=== PATIENT | male | born 1940 | race Hispanic/Latino ===

== ENCOUNTER 2018-01-11 08:32 | Day surgery (SDC) | payer OTHER ==
[2018-01-08 14:05] LABS: BASOPHILS % (AUTO) 0.8 % (0.0-5.0); EOSINOPHILS % (AUTO) 1.1 % (0.0-8.0); HEMATOCRIT 33.3 % (42-54); MEAN CORPUSCULAR HEMOGLOBIN 29.5 pg (27.0-33.0); MEAN CORPUSCULAR HGB CONC 33.7 g/dL (32.0-36.0); MEAN CORPUSCULAR VOLUME 87.6 fL (79-99); MONOCYTES % (AUTO) 5.3 % (3.0-13.0); NEUTROPHILS % (AUTO) 68.8 % (40.0-77.0); PLATELET COUNT (AUTO) 142 K/uL (130-400); RED CELL DISTRIBUTION WIDTH 15.5 % (11.0-15.5); WHITE BLOOD COUNT (AUTO) 6.9 K/uL (4.8-10.8)
[2018-01-08 14:12] LABS: CREATININE 1.8 mg/dL (0.5-1.5); POTASSIUM 3.1 mmol/L (3.5-5.1)
[2018-01-08 14:26] LABS: INR 1.02 (0.85-1.15); PARTIAL THROMBOPLASTIN TIME 30.9 SEC (26.3-35.5); PROTHROMBIN TIME 10.7 SEC (9.6-11.6)
[2018-01-11] VITALS (19 sets, daily range): BP systolic 151–199; BP diastolic 56–109
[~2018-01-11] VITALS: Ht 172.7 cm; Wt 38.6 kg
[~2018-01-11 08:32] MED LIST: AMLO5TAB7 PO; ASPI-1197 PO; GLIP1TAB6 PO; METO100T14 PO; SIMV40TA5 PO; SODIUM CHLORIDE 0.9% 1000ML 1,000 ML IV SCH; VALS160T29 PO
[2018-01-11] MEDS ORDERED: APIX2.5T PO (10:43)
[2018-01-11] MEDS ORDERED: [UNRECOGNIZED DRUG - OTHER] TP (10:43)
[2018-01-11] MEDS ORDERED: CETI-101 PO (10:43)
[2018-01-11] MEDS ORDERED: PRAV40TA3 PO (10:43)
[2018-01-11] MEDS ORDERED: TRAZ-187 PO (10:43)
[2018-01-11] MEDS ORDERED: MIDAZOLAM HCL 1 MG/ML 2ML VIAL ONE (11:11)
[2018-01-11] MEDS ORDERED: FENTANYL CITRATE PF 50 MCG/1 ML 2ML VIAL ONE (11:12)
[2018-01-11] MEDS ORDERED: LABETALOL HCL 5 MG/ML 20ML VIAL IV SCH (16:30)
== END 2018-01-11 13:40 | disposition home or self-care (01) ==
LOC: DAH 08:32
PROVIDERS: ATTEND Internal Medicine Cardiovascular Disease
DX: I35.0 Nonrheumatic aortic (valve) stenosis (principal); I35.1 Nonrheumatic aortic (valve) insufficiency; I25.10 Atherosclerotic heart disease of native coronary artery without angina pectoris; Z95.1 Presence of aortocoronary bypass graft; E78.5 Hyperlipidemia, unspecified; E11.9 Type 2 diabetes mellitus without complications; Z88.0 Allergy status to penicillin; I11.0 Hypertensive heart disease with heart failure; I50.32 Chronic diastolic (congestive) heart failure; R00.1 Bradycardia, unspecified; M54.16 Radiculopathy, lumbar region; Z95.0 Presence of cardiac pacemaker; I48.0 Paroxysmal atrial fibrillation; Z79.899 Other long term (current) drug therapy
CPT/HCPCS: 36415; 80048; 82948; 85025; 85610; 85730; 93313; A4606; J2250; J3010; J3490; 93325

== ENCOUNTER → 2018-06-16 | Outpatient (CLI) | payer OTHER ==
[~2018-06-16] MED LIST changes: -AMLO5TAB7 PO; +APIX2.5T PO; -ASPI-1197 PO; +CARV25TA PO; +CARV3.12 PO; +CETI-101 PO; +CLON1PAT13 TD; +CYAN500L PO; +DOXY100C2 PO; +DULA1.5P SQ; +FURO40TA5 PO; +INSU3INS3 SQ; +INSULIN SQ; +IPRA3AMP24 IH; +LACT10SO PO; +LUBI24CA2 PO; +MELA3TAB66 PO; +OLME40TA18 PO; +PRAV40TA3 PO; +PREG50 PO; -SIMV40TA5 PO; -SODIUM CHLORIDE 0.9% 1000ML 1,000 ML IV SCH; +TRAZ-187 PO; -VALS160T29 PO; +[UNRECOGNIZED DRUG - OTHER] TP
== END | disposition home or self-care (01) ==
LOC: SHCH 13:01
PROVIDERS: ATTEND Internal Medicine Cardiovascular Disease
DX: I73.9 Peripheral vascular disease, unspecified (principal); I25.10 Atherosclerotic heart disease of native coronary artery without angina pectoris; I10 Essential (primary) hypertension
CPT/HCPCS: 93925

== ENCOUNTER → 2018-07-02 | Outpatient (CLI) | payer OTHER ==
[~2018-07-02] MED LIST changes: -CARV25TA PO; -CARV3.12 PO; -CLON1PAT13 TD; -CYAN500L PO; -DOXY100C2 PO; -DULA1.5P SQ; -FURO40TA5 PO; -INSU3INS3 SQ; -INSULIN SQ; -IPRA3AMP24 IH; -LACT10SO PO; -LUBI24CA2 PO; -MELA3TAB66 PO; -OLME40TA18 PO; -PREG50 PO
== END | disposition home or self-care (01) ==
LOC: SHCH 13:35
PROVIDERS: ATTEND Internal Medicine Cardiovascular Disease
DX: I08.1 Rheumatic disorders of both mitral and tricuspid valves (principal); I11.9 Hypertensive heart disease without heart failure; I25.10 Atherosclerotic heart disease of native coronary artery without angina pectoris; Z95.2 Presence of prosthetic heart valve; Z95.0 Presence of cardiac pacemaker
CPT/HCPCS: 93306

== ENCOUNTER 2018-07-26 14:00 | Inpatient (IN) | payer OTHER ==
[~2018-07-26] VITALS: Ht 172.7 cm; Wt 80.7 kg
[2018-07-26] MEDS ORDERED: FUROSEMIDE 10 MG/ML 4ML VIAL IVP SCH (15:00)
[2018-07-26] MEDS ORDERED: ONDANSETRON HCL 4 MG/2 ML VIAL IVP PRN (15:15)
[2018-07-26] MEDS ORDERED: MAG HYDROX/AL HYDROX/SIMETH ES 30 ML SUSP UDCUP PO PRN (15:15)
[2018-07-26] MEDS ORDERED: DIPHENHYDRAMINE HCL 25 MG CAPSULE PO PRN (15:15)
[2018-07-26] MEDS ORDERED: ZOLPIDEM TARTRATE 5 MG TAB PO PRN (15:15)
--- NOTE | 2018-07-26 15:20 | NUR ---
due to void Addendum: 07/26/18 at 2000 by DOUGLAS GENAO RN RN Amended: Links added.
--- NOTE | 2018-07-26 15:42 | NUR ---
Direct admit from the ER for CHF exacerbation, accompanied by his dtr. Addendum: 07/26/18 at 1555 by DOUGLAS GENAO RN RN Amended: Links added.
[2018-07-26 16:00] VITALS: BP 133/66
[2018-07-26] MEDS ORDERED: FURO40TA5 PO (16:50)
[2018-07-26] MEDS ORDERED: CYAN500L PO (16:50)
[2018-07-26] MEDS ORDERED: INSU3INS3 SQ (16:50)
[2018-07-26] MEDS ORDERED: DULA1.5P SQ (16:50)
[2018-07-26] MEDS ORDERED: GLIP1TAB6 PO (16:50)
[2018-07-26] MEDS ORDERED: CLON1PAT13 TD (16:50)
[2018-07-26] MEDS ORDERED: LUBI24CA2 PO (16:50)
[2018-07-26] MEDS ORDERED: LACT10SO PO (16:50)
[2018-07-26] MEDS ORDERED: PREG50 PO (16:50)
[2018-07-26 16:51] LABS: HEMATOCRIT 31.6 % (42-54); MEAN CORPUSCULAR HEMOGLOBIN 27.7 pg (27.0-33.0); MEAN CORPUSCULAR HGB CONC 33.1 g/dL (32.0-36.0); MEAN CORPUSCULAR VOLUME 83.7 fL (79-99); PLATELET COUNT (AUTO) 161 K/uL (130-400); RED BLOOD CELL COUNT(AUTO) 3.77 MIL/uL (4.50-6.20); RED CELL DISTRIBUTION WIDTH 18.5 % (11.0-15.5); WHITE BLOOD COUNT (AUTO) 6.2 K/uL (4.8-10.8)
[2018-07-26 17:14] LABS: ALBUMIN 3.2 g/dL (3.5-5.0); BILIRUBIN,DIRECT 0.1 mg/dL (0.0-0.3); BILIRUBIN,TOTAL 0.5 mg/dL (0.2-1.0); CREATININE 1.9 mg/dL (0.5-1.5); POTASSIUM 3.4 mmol/L (3.5-5.1); THYROID STIMULATING HORMONE 1.73 uIU/mL (0.36-3.74); TOTAL PROTEIN, SERUM 6.6 g/dL (6.0-8.3)
[2018-07-26 20:00] VITALS: BP 131/65
[2018-07-26] MEDS ORDERED: LIDOCAINE HCL-MPF 1% 2ML VIAL IVP PRN (20:15)
[2018-07-26] MEDS ORDERED: POTASSIUM CHLORIDE 20MEQ/100ML 100 ML IV PRN (20:15)
[2018-07-26] MEDS ORDERED: LACTULOSE 20 GM/30 ML UDCUP PO PRN (20:15)
[2018-07-26] MEDS ORDERED: [UNRECOGNIZED DRUG - OTHER] SQ SCH (20:15)
[2018-07-26] MEDS ORDERED: POTASSIUM CHLORIDE 10% ELIXIR 20 MEQ/15 ML UDCUP PO PRN (20:15)
[2018-07-26] MEDS ORDERED: INSULIN GLARGINE HUM REC ANLOG 12 UNIT SQ SCH (20:15)
--- NOTE | 2018-07-26 20:15 | NUR ---
Paged Dr José thru answering service.
[2018-07-26] MEDS: APIXABAN 2.5 MG TABLET PO SCH (21:00)
[2018-07-26] MEDS: PREGABALIN 25 MG CAP PO SCH (21:00)
[2018-07-26] MEDS: METOPROLOL TARTRATE 25 MG TAB PO SCH (21:28)
[2018-07-26] MEDS: POTASSIUM CHLORIDE 20 MEQ ERTAB PO PRN (21:28)
[2018-07-26] MEDS: FAMOTIDINE 20MG TAB 20 MG TAB PO SCH (21:28)
[2018-07-27] VITALS: BP 130/71
[2018-07-27 04:00] VITALS: BP 123/70
[2018-07-27] MEDS: FUROSEMIDE 10 MG/ML 2ML VIAL IV SCH ×2 (04:31→16:46)
[2018-07-27 05:10] LABS: HEMATOCRIT 28.5 % (42-54); MEAN CORPUSCULAR HEMOGLOBIN 27.9 pg (27.0-33.0); MEAN CORPUSCULAR HGB CONC 33.2 g/dL (32.0-36.0); MEAN CORPUSCULAR VOLUME 84.2 fL (79-99); NUCLEATED RED BLOOD CELLS 0.1 % (0.0-0.19); PLATELET COUNT (AUTO) 122 K/uL (130-400); RED BLOOD CELL COUNT(AUTO) 3.39 MIL/uL (4.50-6.20); RED CELL DISTRIBUTION WIDTH 18.3 % (11.0-15.5); WHITE BLOOD COUNT (AUTO) 5.4 K/uL (4.8-10.8)
[2018-07-27 05:30] LABS: ALBUMIN 2.8 g/dL (3.5-5.0); BILIRUBIN,DIRECT 0.1 mg/dL (0.0-0.3); BILIRUBIN,TOTAL 0.5 mg/dL (0.2-1.0); CREATININE 1.9 mg/dL (0.5-1.5); POTASSIUM 3.4 mmol/L (3.5-5.1); TOTAL PROTEIN, SERUM 5.8 g/dL (6.0-8.3)
[2018-07-27] MEDS: POTASSIUM CHLORIDE 20 MEQ ERTAB PO PRN ×2 (06:18→16:49)
[2018-07-27] MEDS: PHARMACY COMMUNICATION MISC SCH ×3 (07:30→21:57)
[2018-07-27 08:00] VITALS: BP 119/65
--- NOTE | 2018-07-27 08:00 | NUR ---
aortic heart mummur Addendum: 07/27/18 at 1326 by DOUGLAS GENAO RN RN Amended: Links added.
[2018-07-27] MEDS: METFORMIN HCL 500 MG TABLET PO SCH ×2 (09:00→16:17)
[2018-07-27] MEDS ORDERED: CLONIDINE 0.3 MG/ 24 HR PATCH TD SCH (09:00)
[2018-07-27] MEDS: APIXABAN 2.5 MG TABLET PO SCH (09:00)
[2018-07-27] MEDS: PREGABALIN 25 MG CAP PO SCH ×2 (09:27→20:44)
[2018-07-27] MEDS: CYANOCOBALAMIN (VITAMIN B-12) 1,000 MCG TABLET PO SCH (09:28)
[2018-07-27] MEDS: GLIPIZIDE 5 MG TABLET PO SCH ×2 (09:28→16:46)
[2018-07-27] MEDS: FAMOTIDINE 20MG TAB 20 MG TAB PO SCH ×2 (09:28→21:57)
[2018-07-27] MEDS: LUBIPROSTONE 24 MCG CAP PO SCH (09:28)
[2018-07-27] MEDS: METOPROLOL TARTRATE 25 MG TAB PO SCH ×2 (09:29→21:57)
--- NOTE | 2018-07-27 11:39 | NUR ---
Pt. taken via w/c for CT of the chest, left in stable condition.
[2018-07-27 12:00] VITALS: BP 104/55
--- NOTE | 2018-07-27 12:02 | NUR ---
Pt. back in room s/p CT of the chest, deneis any c/o. Family in room w/pt.
--- NOTE | 2018-07-27 15:56 | NUR ---
Pt. signed consent for Heart Catheterization with Dr. Neri tomorrow. Pt. requests that if he is unable to make medical decisions for himself that he wishes for his daughter Sarah Bean or son Andriy Bean to make medical decisions. Had put in request for Advanced directives, left message for FAROOQ Stephens to call me, have not heard back from her.
[2018-07-27 16:00] VITALS: BP 137/66
[2018-07-27 20:00] VITALS: BP 126/62
[2018-07-27] MEDS ORDERED: INSULIN GLARGINE 100 UNITS/ML 10 ML VIAL SQ PRN (20:30)
--- NOTE | 2018-07-27 22:42 | NUR ---
SHOWER/PREP Pt showered and clipped from umbilicus to both knees per LOSS PREVENTION REPRESENTATIVE.
[2018-07-28] VITALS (13 sets, daily range): BP systolic 102–172; BP diastolic 44–92
[2018-07-28] MEDS: PHARMACY COMMUNICATION MISC SCH (03:56)
[2018-07-28] MEDS: FUROSEMIDE 10 MG/ML 2ML VIAL IV SCH (04:27)
--- NOTE | 2018-07-28 04:45 | NUR ---
NIGHT Pt slept fairly well.Voiced no complaints of pain or discomfort.
[2018-07-28 05:46] LABS: HEMATOCRIT 27.9 % (42-54); MEAN CORPUSCULAR HEMOGLOBIN 27.4 pg (27.0-33.0); MEAN CORPUSCULAR HGB CONC 33.4 g/dL (32.0-36.0); MEAN CORPUSCULAR VOLUME 82.2 fL (79-99); PLATELET COUNT (AUTO) 159 K/uL (130-400); RED CELL DISTRIBUTION WIDTH 17.9 % (11.0-15.5); WHITE BLOOD COUNT (AUTO) 5.7 K/uL (4.8-10.8)
[2018-07-28 06:09] LABS: INR 1.02 (0.85-1.15); PARTIAL THROMBOPLASTIN TIME 30.5 SEC (26.3-35.5); PROTHROMBIN TIME 10.7 SEC (9.6-11.6)
[2018-07-28 06:16] LABS: ALBUMIN 2.9 g/dL (3.5-5.0); BILIRUBIN,TOTAL 0.3 mg/dL (0.2-1.0); CREATININE 1.9 mg/dL (0.5-1.5); POTASSIUM 3.3 mmol/L (3.5-5.1); TOTAL PROTEIN, SERUM 5.8 g/dL (6.0-8.3)
--- NOTE | 2018-07-28 06:55 | NUR ---
K+ k+ 3.3 covered with Iv kcl protocol.
[2018-07-28] MEDS: GLIPIZIDE 5 MG TABLET PO SCH ×2 (08:53→18:49)
[2018-07-28] MEDS: LUBIPROSTONE 24 MCG CAP PO SCH (08:53)
[2018-07-28] MEDS: PREGABALIN 25 MG CAP PO SCH ×2 (08:58→20:13)
[2018-07-28] MEDS: CYANOCOBALAMIN (VITAMIN B-12) 1,000 MCG TABLET PO SCH (08:59)
[2018-07-28] MEDS: FAMOTIDINE 20MG TAB 20 MG TAB PO SCH ×2 (09:33→20:12)
--- NOTE | 2018-07-28 11:04 | NUR ---
DIRECTIVES Sw met with pt, and daughter and educated on directives, MPOA and DNR. pt does not wish to complete at this time
--- NOTE | 2018-07-28 12:10 | NUR ---
PATIENT TRANSFERRED TO RN ANTE PARTUM, R & L HEART CATH. NO SOB, NO DISTRESS, NO PAIN. IV PATENTS X2.
[2018-07-28] MEDS ORDERED: IOHEXOL-350 50ML VIAL IV ONE (12:50)
[2018-07-28] MEDS ORDERED: HEPARIN SODIUM 1000UNIT/ML 10ML VIAL ONE (12:50)
[2018-07-28] MEDS ORDERED: LIDOCAINE HCL 2% 20ML ONE (12:50)
[2018-07-28] MEDS ORDERED: NITROGLYCERIN 5 MG/ML 10 ML VIAL IV ONE (12:50)
[2018-07-28] MEDS ORDERED: IOHEXOL 350 MG/ML 100ML INFUS..BTL IV ONE (12:50)
[2018-07-28] MEDS ORDERED: SODIUM BICARB 50MEQ 50ML VIAL ONE (12:51)
[2018-07-28] MEDS ORDERED: MIDAZOLAM HCL 1 MG/ML 2ML VIAL ONE (13:22)
[2018-07-28] MEDS ORDERED: MEPERIDINE-PF 50 MG/ML SYG ONE (13:22)
[2018-07-28] MEDS ORDERED: DOBUTAMINE IV ONE (13:57)
[2018-07-28] MEDS ORDERED: [UNRECOGNIZED DRUG - OTHER] IV ONE (13:57)
[2018-07-28] MEDS ORDERED: FUROSEMIDE 10 MG/ML 4ML VIAL IV SCH (14:45)
--- NOTE | 2018-07-28 15:49 | NUR ---
JUANA PLAN PATIENT DOWN FOR PROCEDURE. HE HAS BEEN TRANSFERRED TO ICU FOR SEVERE STENOSIS. CM WILL FOLLOW ONCE PATIENT IS STABLE AND PLAN OF CARE IS DETERMINED. Addendum: 07/28/18 at 1550 by STEPHY LIMA RN CM Amended: Links added.
--- NOTE | 2018-07-28 15:54 | NUR ---
PT IN FROM [facility], APPEARS COMFORTABLE. RIGHT GROIN SOFT. BILATERAL PEDAL PULSES PALPABLE AND WEAK. NO IV FLUIDS AT THIS TIME. INSTRUCTED PT ON BEDREST UNTIL 8PM. FAMILY AT BEDSIDE. VERBALIZED UNDERSTANDING. WILL CONTINUE TO MONITOR.
[2018-07-28] MEDS: METOPROLOL TARTRATE 25 MG TAB PO SCH ×2 (16:40→20:13)
--- NOTE | 2018-07-28 19:10 | NUR ---
Received report ,pt had a cardiac catheterization today and for transfer tomorrow to [facility] tomorrow for TAVR and pt is pending to be seen by Dr. Combs tomorrow.House was made aware per dayshift nurse
[2018-07-28] MEDS ORDERED: IPRA3AMP24 IH (22:09)
--- NOTE | 2018-07-28 22:15 | NUR ---
Pt.c/o chest tightness and non productive coughing and pt is on neb treatment at home,Dr. José was called and notified ,received order to continue neb q6 hrs prn wheezing.Family to bedside.
[2018-07-28] MEDS: IPRATROPIUM/ALBUTEROL SULFATE 3 ML SOLUTION IH PRN (22:27)
[2018-07-29] VITALS (11 sets, daily range): BP systolic 108–161; BP diastolic 51–106
--- NOTE | 2018-07-29 00:02 | NUR ---
Pt. wanted to get out of bed,informed pt. that he is on bedrest and he is short of breath on exertion pt. continued to insist and to bedside .Pt. decided to sit up at the bedside at this time.
--- NOTE | 2018-07-29 02:40 | NUR ---
Security was notified and now in pt. room because pt is agressive and became confused wanting to leave.Engineer Process was also notified regarding pt. being confused and wanting to leave.Pt. refused to be monitored,he took off all the electrodes and pulse ox and BP cuff. to bedside and said she cant take care of him.Pt. insisted of going home by himself.Explained to pt that he is not safe to be by himself at this time because of his present condition but to no avail.
--- NOTE | 2018-07-29 03:16 | NUR ---
was called and notiifed ,updated with pt. condition,lung sounds were crackly and pt refusing to be monitored and became aggressive and uncooperative.Pt. is confused and wanting to leave.Security and staffs walking with pt because he threatened to leave .Received order to do labs now and give haldol 4 mg IM now X1.
--- NOTE | 2018-07-29 03:20 | NUR ---
Dr. José is being paged and waiting to call back at this time.
[2018-07-29] MEDS ORDERED: HALOPERIDOL LACTATE 5 MG/ML VIAL IM SCH (04:00)
[2018-07-29] MEDS: HALOPERIDOL LACTATE 5 MG/ML VIAL ONE ×2 (04:04→04:13)
[2018-07-29] MEDS: IPRATROPIUM/ALBUTEROL SULFATE 3 ML SOLUTION IH PRN (06:50)
--- NOTE | 2018-07-29 07:37 | NUR ---
Pt. remained calm and resting well at this time,daughter to bedside.Report given to incoming NOD using SBAR ,all questions answered.
[2018-07-29 08:18] LABS: HEMATOCRIT 29.8 % (42-54); MEAN CORPUSCULAR HEMOGLOBIN 28.2 pg (27.0-33.0); MEAN CORPUSCULAR HGB CONC 33.4 g/dL (32.0-36.0); MEAN CORPUSCULAR VOLUME 84.3 fL (79-99); NUCLEATED RED BLOOD CELLS 0.1 % (0.0-0.19); PLATELET COUNT (AUTO) 147 K/uL (130-400); RED BLOOD CELL COUNT(AUTO) 3.53 MIL/uL (4.50-6.20); RED CELL DISTRIBUTION WIDTH 18.3 % (11.0-15.5); WHITE BLOOD COUNT (AUTO) 9.3 K/uL (4.8-10.8)
[2018-07-29 08:57] LABS: LYMPHOCYTES % (MANUAL) 5 % (22-44); MAN.DIFF COMMENT-IMPRESSION MANUAL DIFFERENTIAL; MONOCYTES % (MANUAL) 3 % (2-9); PLATELET MORPHOLOGY COMMENT ADEQUATE; REACTIVE LYMPHOCYTES 1 % (0-0); SEGMENTED NEUTROPHILS % 91 % (40-70)
[2018-07-29 09:01] LABS: CREATININE 2.5 mg/dL (0.5-1.5); POTASSIUM 4.1 mmol/L (3.5-5.1)
[2018-07-29 09:06] LABS: TOTAL PROTEIN, SERUM 5.9 g/dL (6.0-8.3)
[2018-07-29 09:19] LABS: BILIRUBIN,TOTAL 0.6 mg/dL (0.2-1.0)
[2018-07-29] MEDS: GLIPIZIDE 5 MG TABLET PO SCH (09:24)
[2018-07-29] MEDS: PREGABALIN 25 MG CAP PO SCH (09:25)
[2018-07-29] MEDS: CYANOCOBALAMIN (VITAMIN B-12) 1,000 MCG TABLET PO SCH (09:25)
[2018-07-29] MEDS: METOPROLOL TARTRATE 25 MG TAB PO SCH (09:25)
[2018-07-29] MEDS: FAMOTIDINE 20MG TAB 20 MG TAB PO SCH (09:25)
[2018-07-29] MEDS: LUBIPROSTONE 24 MCG CAP PO SCH (09:25)
--- NOTE | 2018-07-29 10:21 | NUR ---
f/u visit SW met with daughter who reports pt and family had a "rough night". Daughter reported events of night, pt's confusion, behavior. Daughter had question regarding MPOA now that pt is confused. SW again explained Surrogate Decision Maker Law, would be decision maker. Daughter reports that pt has 4 other children outside the marriage with 4 other women. Daughter reports that those children are in contact with pt but her mother and siblings have never met them nor does want them to be involved. Daughter had question regarding need to involve other kids. SW explained that if wants to include her children in decision making that was up to her, but would be decision maker and need to sign consents. In the event that can not make decisions, we would have to contact other children for majority. If pt has MPOA in place, then other children do not need to be involved. At this point, no MPOA can be completed. Daughter voiced understanding. Daughter feels that pt's other children have a right to know pt is sick and see pt, this situation is not their fault. Daughter states her siblings are not agreeable nor is . Sw provided emotional support. Sw to follow and assist as needed
--- NOTE | 2018-07-29 11:27 | NUR ---
[id number] transfer follow up with house-supervisor chlorine liquefaction which refer the call to the transfer center. call place to [phone] spoke to glen head intake nurse for transfer initiation information take and will call back. [id number] [place] transfer center intake call back with bed assignment room icu 17 and primary nurse to call report to [phone]. EMS set up and now awaiting for EMS. Daughter inform of above and will be going with matt Hogan rn
--- NOTE | 2018-07-29 11:30 | NUR ---
Attempted to call report to Renzo Aguilar [phone]; Employee Ke stated she was not aware of this patient coming and would call me back shortly to get report as soon as she could clarify admission with her annual greenhouse manager.
--- NOTE | 2018-07-29 12:15 | NUR ---
patient taken by EMS at this time; anh Vázquez at bedside and stated she will follow ambulance to [place]; piv x2 remain in place; all belongings taken by daughter and Addendum: 07/29/18 at 1339 by PATRICIA KOCH RN RN patient taken by EMS at this time; anh Vázquez at bedside and stated she will follow ambulance to [place]; piv x2 remain in place; all belongings taken by daughter and at 1230
--- NOTE | 2018-07-29 12:25 | NUR ---
Report given to nurse Marcia over the phone at this time; EMS also notified and in route; patient will be going to [facility]
[2018-07-29] MEDS ORDERED: FUROSEMIDE 10 MG/ML 2ML VIAL IV SCH (15:00)
[2018-08-02] MEDS ORDERED: CLONIDINE 0.2 MG/ 24 HR PATCH TD SCH (09:00)
[2018-08-02] MEDS ORDERED: DULAGLUTIDE 1.5 MG SQ SCH (09:00)
== END 2018-07-29 12:42 | disposition short-term general hospital (02) | DRG 286 ==
LOC: EDH 14:00 → EDHIP 14:12 → OBSVTOIN 14:12 → 3AH 15:24 → 2CH 07-28 15:48
PROVIDERS: ADMIT Internal Medicine; ATTEND Internal Medicine
PROC: 4A023N8 Measurement of Cardiac Sampling and Pressure, Bilateral, Percutaneous Approach (ICD-10-PCS; principal; 2018-07-28)
PROC: B2111ZZ Fluoroscopy of Multiple Coronary Arteries using Low Osmolar Contrast (ICD-10-PCS; 2018-07-28)
PROC: B2131ZZ Fluoroscopy of Multiple Coronary Artery Bypass Grafts using Low Osmolar Contrast (ICD-10-PCS; 2018-07-28)
PROC: B2181ZZ Fluoroscopy of Left Internal Mammary Bypass Graft using Low Osmolar Contrast (ICD-10-PCS; 2018-07-28)
PROC: B41F1ZZ Fluoroscopy of Right Lower Extremity Arteries using Low Osmolar Contrast (ICD-10-PCS; 2018-07-28)
DX: T82.857A Stenosis of other cardiac prosthetic devices, implants and grafts, initial encounter (principal); I50.43 Acute on chronic combined systolic (congestive) and diastolic (congestive) heart failure; N18.4 Chronic kidney disease, stage 4 (severe); I13.0 Hypertensive heart and chronic kidney disease with heart failure and stage 1 through stage 4 chronic kidney disease, or unspecified chronic kidney disease; I35.2 Nonrheumatic aortic (valve) stenosis with insufficiency; I25.10 Atherosclerotic heart disease of native coronary artery without angina pectoris; I71.2 Thoracic aortic aneurysm, without rupture; J47.9 Bronchiectasis, uncomplicated; I48.0 Paroxysmal atrial fibrillation; D64.9 Anemia, unspecified; E11.22 Type 2 diabetes mellitus with diabetic chronic kidney disease; E11.51 Type 2 diabetes mellitus with diabetic peripheral angiopathy without gangrene; E78.5 Hyperlipidemia, unspecified; I25.5 Ischemic cardiomyopathy; I27.20 Pulmonary hypertension, unspecified; M54.17 Radiculopathy, lumbosacral region; Y83.1 Surgical operation with implant of artificial internal device as the cause of abnormal reaction of the patient, or of later complication, without mention of misadventure at the time of the procedure; Z95.3 Presence of xenogenic heart valve; Z79.01 Long term (current) use of anticoagulants; Z95.0 Presence of cardiac pacemaker; Z95.1 Presence of aortocoronary bypass graft; Z88.0 Allergy status to penicillin; Z88.8 Allergy status to other drugs, medicaments and biological substances
CPT/HCPCS: 36415; 71045; 71250; 80048; 80053; 80076; 82140; 82948; 83690; 84443; 85027; 85610; 85730; 93461; 94640; 94664; 99156; 99157; C1769; C1893; C1894; G0378; J1250; J1630; J1644; J1940; J2175; J2250; J2405; J3480; J3490; Q0163; Q9967

== ENCOUNTER → 2018-09-03 | Outpatient (CLI) | payer OTHER ==
[~2018-09-03] MED LIST changes: -CETI-101 PO; +CLON1PAT13 TD; +CYAN500L PO; +DULA1.5P SQ; +FURO40TA5 PO; +INSU3INS3 SQ; +IPRA3AMP24 IH; +LACT10SO PO; +LUBI24CA2 PO; -PRAV40TA3 PO; +PREG50 PO; -TRAZ-187 PO; -[UNRECOGNIZED DRUG - OTHER] TP
== END | disposition home or self-care (01) ==
LOC: SHCH 13:34
PROVIDERS: ATTEND Internal Medicine Cardiovascular Disease
DX: I08.3 Combined rheumatic disorders of mitral, aortic and tricuspid valves (principal); I11.9 Hypertensive heart disease without heart failure; Z95.2 Presence of prosthetic heart valve
CPT/HCPCS: 93306

== ENCOUNTER 2018-10-13 10:10 | Observation (INO) | payer OTHER ==
[2018-10-11 08:45] VITALS: BP 206/90
[2018-10-11 09:17] LABS: BASOPHILS % (AUTO) 0.5 % (0.0-5.0); EOSINOPHILS % (AUTO) 1.7 % (0.0-8.0); HEMATOCRIT 35.1 % (42-54); LYMPHOCYTES % (AUTO) 21.5 % (21.0-51.0); MEAN CORPUSCULAR HEMOGLOBIN 26.7 pg (27.0-33.0); MEAN CORPUSCULAR VOLUME 83.4 fL (79-99); MONOCYTES % (AUTO) 5.6 % (3.0-13.0); NEUTROPHILS % (AUTO) 70.7 % (40.0-77.0); PLATELET COUNT (AUTO) 167 K/uL (130-400); RED BLOOD CELL COUNT(AUTO) 4.21 MIL/uL (4.50-6.20); RED CELL DISTRIBUTION WIDTH 16.5 % (11.0-15.5); WHITE BLOOD COUNT (AUTO) 6.8 K/uL (4.8-10.8)
[2018-10-11 09:23] LABS: CREATININE 1.6 mg/dL (0.5-1.5); POTASSIUM 4.6 mmol/L (3.5-5.1)
[2018-10-11 09:27] LABS: INR 0.96 (0.85-1.15); PARTIAL THROMBOPLASTIN TIME 28.4 SEC (26.3-35.5); PROTHROMBIN TIME 10.1 SEC (9.6-11.6)
--- NOTE | 2018-10-11 09:30 | NUR ---
ANABEL CALLED DR. SHEELA FALCON'S PA RE: ANABEL, PT HAS NOT TAKEN SINCE 10/07/18. PER RISA, CONTINUE TO HOLD ANABEL.
--- NOTE | 2018-10-12 12:00 | NUR ---
BUN/CREA INFORMED SINA FISHER OF ABNORMAL BUN/CREA. NO ORDERS RECEIVED. PROCEED WITH PLANNED PROCEDURE.
[2018-10-13] VITALS (9 sets, daily range): BP systolic 147–198; BP diastolic 62–105
[~2018-10-13] VITALS: Ht 170.2 cm; Wt 79.5 kg
[~2018-10-13 10:10] MED LIST changes: +CARV3.12 PO; -CLON1PAT13 TD; -CYAN500L PO; -DULA1.5P SQ; -GLIP1TAB6 PO; -INSU3INS3 SQ; +INSULIN SQ; -IPRA3AMP24 IH; -LACT10SO PO; -LUBI24CA2 PO; +MELA3TAB PO; -METO100T14 PO; +OLME40TA18 PO; -PREG50 PO; +SODIUM CHLORIDE 0.9% 1000ML 1,000 ML IV SCH
[2018-10-13] MEDS ORDERED: BUPIVACAINE/PF 0.25% 30ML VIAL IJ ONE (14:16)
[2018-10-13] MEDS ORDERED: LIDOCAINE HCL 1% MDV 50ML VIAL ONE (14:16)
[2018-10-13] MEDS ORDERED: VANCOMYCIN 1GM+NS 250ML 250 ML IV ONE ×2 (14:17→14:20)
[2018-10-13] MEDS ORDERED: IODIXANOL 320 MG/ML 100 ML VIAL ONE (14:24)
[2018-10-13] MEDS ORDERED: MIDAZOLAM HCL 1 MG/ML 2ML VIAL ONE ×2 (14:26→15:49)
[2018-10-13] MEDS ORDERED: MEPERIDINE-PF 25 MG/ML SYG ONE ×2 (14:26→15:49)
[2018-10-13] MEDS ORDERED: THROMBIN-JMI 5000 UNIT/VIAL TP ONE (15:18)
[2018-10-13] MEDS ORDERED: GLUCAGON 1MG KIT 1 MG ML IM PRN (16:30)
[2018-10-13] MEDS: INSULIN HUMULIN R 100 UNIT/ML 3ML SQ SCH ×2 (16:30→20:46)
[2018-10-13] MEDS ORDERED: ACETAMINOPHEN 325 MG TAB PO PRN (16:30)
[2018-10-13] MEDS ORDERED: DEXTROSE 50%-WATER 50 ML DISP.SYRIN IV PRN (16:30)
[2018-10-13] MEDS ORDERED: OCTYL 2-CYANOACRYLATE 1 EACH TP ONE (16:34)
[2018-10-13] MEDS ORDERED: LABETALOL HCL 5 MG/ML 20ML VIAL IV ONE (16:34)
[2018-10-13] MEDS: CARVEDILOL 25 MG TABLET PO SCH (20:45)
[2018-10-13] MEDS ORDERED: **HM**(Melatonin 3 MG PO SCH (21:00)
[2018-10-14] MEDS ORDERED: VANCOMYCIN 1GM+NS 250ML 250 ML IV SCH (02:30)
[2018-10-14] MEDS ORDERED: POTASSIUM CHLORIDE 10% ELIXIR 20 MEQ/15 ML UDCUP PO PRN (03:15)
[2018-10-14] MEDS ORDERED: MAGNESIUM 2GM PREMIX 50ML 50 ML IV PRN (03:15)
[2018-10-14] MEDS ORDERED: LIDOCAINE HCL-MPF 1% 2ML VIAL IVP PRN (03:15)
[2018-10-14] MEDS ORDERED: POTASSIUM CHLORIDE 20 MEQ ERTAB PO PRN (03:15)
[2018-10-14] MEDS ORDERED: POTASSIUM CHLORIDE 20MEQ/100ML 100 ML IV PRN (03:15)
[2018-10-14] MEDS: INSULIN HUMULIN R 100 UNIT/ML 3ML SQ SCH (06:29)
[2018-10-14 07:00] VITALS: BP 147/79
[2018-10-14] MEDS ORDERED: INSULIN HUMULIN R 100 UNIT/ML 3ML SQ SCH (07:30)
[2018-10-14 09:00] VITALS: BP 147/79
[2018-10-14] MEDS ORDERED: FUROSEMIDE 40 MG TABLET PO SCH (09:00)
[2018-10-14] MEDS ORDERED: LOSARTAN 100 MG TABLET PO SCH (09:00)
[2018-10-14] MEDS: CARVEDILOL 25 MG TABLET PO SCH (09:00)
[2018-10-14] MEDS ORDERED: CARV25TA PO (09:48)
[2018-10-14] MEDS ORDERED: DOXY100C2 PO (09:49)
== END 2018-10-14 10:45 | disposition home or self-care (01) ==
LOC: DAH 10:10 → 2DH 10:11
PROVIDERS: ADMIT Internal Medicine; ATTEND Internal Medicine
DX: I25.5 Ischemic cardiomyopathy (principal); I25.10 Atherosclerotic heart disease of native coronary artery without angina pectoris; I49.5 Sick sinus syndrome; I13.0 Hypertensive heart and chronic kidney disease with heart failure and stage 1 through stage 4 chronic kidney disease, or unspecified chronic kidney disease; N18.9 Chronic kidney disease, unspecified; I50.42 Chronic combined systolic (congestive) and diastolic (congestive) heart failure; Z88.0 Allergy status to penicillin; Z79.899 Other long term (current) drug therapy
CPT/HCPCS: 33225; 33233; 33249; 36415; 71046; 80048; 82948 ×2; 85025; 85610; 85730; 93005; 96365; 96366; A4606; C1769 ×4; C1882; C1894 ×2; C1895; C1900; G0378 ×18; J2175 ×2; J2250 ×2; J3370 ×3; J3490 ×4; J7030; Q9967; 99156; 99157

== ENCOUNTER 2019-01-03 05:55 | Observation (INO) | payer OTHER ==
[2018-12-31 15:50] VITALS: BP 188/87
[2018-12-31 16:24] LABS: BASOPHILS % (AUTO) 0.3 % (0.0-5.0); EOSINOPHILS % (AUTO) 1.5 % (0.0-8.0); HEMATOCRIT 32.1 % (42-54); LYMPHOCYTES % (AUTO) 18.4 % (21.0-51.0); MEAN CORPUSCULAR HGB CONC 32.7 g/dL (32.0-36.0); MEAN CORPUSCULAR VOLUME 82.7 fL (79-99); MONOCYTES % (AUTO) 9.2 % (3.0-13.0); NEUTROPHILS % (AUTO) 70.6 % (40.0-77.0); PLATELET COUNT (AUTO) 168 K/uL (130-400); RED BLOOD CELL COUNT(AUTO) 3.89 MIL/uL (4.50-6.20); RED CELL DISTRIBUTION WIDTH 17.7 % (11.0-15.5); WHITE BLOOD COUNT (AUTO) 7.1 K/uL (4.8-10.8)
[2018-12-31 16:37] LABS: CREATININE 1.7 mg/dL (0.5-1.5); POTASSIUM 3.4 mmol/L (3.5-5.1)
[2018-12-31 16:40] LABS: INR 0.98 (0.85-1.15); PARTIAL THROMBOPLASTIN TIME 30.1 SEC (26.3-35.5); PROTHROMBIN TIME 10.3 SEC (9.6-11.6)
[2019-01-03] VITALS (12 sets, daily range): BP systolic 118–185; BP diastolic 53–92
[~2019-01-03] VITALS: Ht 172.7 cm; Wt 76.5 kg
[~2019-01-03 05:55] MED LIST changes: +CARV25TA PO; -CARV3.12 PO; -FURO40TA5 PO; +FUROSEMIDE PO; +MELA1TAB17 PO; -MELA3TAB PO; -SODIUM CHLORIDE 0.9% 1000ML 1,000 ML IV SCH
[2019-01-03] MEDS ORDERED: SODIUM CHLORIDE 0.9% 1000ML 1,000 ML IV ONE (06:12)
[2019-01-03 06:39] LABS: CREATININE 1.6 mg/dL (0.5-1.5); POTASSIUM 4.2 mmol/L (3.5-5.1)
[2019-01-03] MEDS ORDERED: INSU3INS3 SQ (07:06)
--- NOTE | 2019-01-03 07:14 | NUR ---
REPORTED ABNORMAL CREAT 1.[address] LEES NO NEW ORDERS AT THIS TIME, CONTINUE WITH PROCEDURE.
[2019-01-03] MEDS ORDERED: CEFAZOLIN SODIUM 1 GM VIAL ONE (07:24)
[2019-01-03] MEDS ORDERED: MEPERIDINE-PF 25 MG/ML SYG ONE ×3 (07:24→10:59)
[2019-01-03] MEDS ORDERED: BUPIVACAINE/PF 0.25% 30ML VIAL IJ ONE (07:24)
[2019-01-03] MEDS ORDERED: LIDOCAINE HCL 1% MDV 50ML VIAL ONE (07:25)
[2019-01-03] MEDS ORDERED: MIDAZOLAM HCL 1 MG/ML 2ML VIAL ONE ×3 (07:25→11:00)
[2019-01-03] MEDS ORDERED: VANCOMYCIN 1GM+NS 250ML 250 ML IV ONE ×2 (07:39→07:41)
[2019-01-03] MEDS ORDERED: IODIXANOL 320 MG/ML 100 ML VIAL ONE (07:58)
[2019-01-03] MEDS ORDERED: THROMBIN-JMI 5000 UNIT/VIAL TP ONE (11:06)
--- NOTE | 2019-01-03 12:10 | NUR ---
PT ARRIVED FROM LV LEAD REVISION WITH DRESSING TO THE LEFT MID CHEST INTACT AND DRY. PT. IS V/S STABLE
[2019-01-03] MEDS ORDERED: ACETAMINOPHEN-CODEINE 300/30MG TAB PO PRN (12:15)
[2019-01-03] MEDS ORDERED: PYRIDOXINE HCL PO PRN (12:15)
[2019-01-03] MEDS ORDERED: MELATONIN PO PRN (12:15)
--- NOTE | 2019-01-03 12:25 | NUR ---
PT IS SLEEPING, V/S STABLE AND DRESSING DRY AND INTACT, WILL CONTINUE TO MONITOR PATIENT.
--- NOTE | 2019-01-03 12:40 | NUR ---
NO COMPLICATION WITH PROCEDURE, PT . CONTINUE TO SLEEP,DRESSING INTACT. WILL CONTINUE TO MONITOR PATIENT PULSES STRONG TO THE LEFT RADIAL.
--- NOTE | 2019-01-03 12:55 | NUR ---
PT IS SLEEPING FAMILY MEMBERS LEFT TO WILL RETURN LATER. WILL CONTINUE TO MONITOR PT.
--- NOTE | 2019-01-03 13:30 | NUR ---
NO COMPLAINTS AT THIS TIME FROM PATIENT CONTINUES TO BE STABLE, IS AT BEDSIDE. PULSES PRESENT TO BOTH RADIALS
[2019-01-03] MEDS ORDERED: PHARMACY COMMUNICATION MISC SCH (13:45)
--- NOTE | 2019-01-03 14:00 | NUR ---
PT IS STABLE WITH AT BEDSIDE, NO COMPLICATION AT THIS TIME SITE IS DRY AND INTACT.
--- NOTE | 2019-01-03 14:04 | NUR ---
SPOKE WITH DR. SANDOVAL OFFFICE AND GIVE INFO TO SAIDA WILD THAT , DR. LEES REFEREED DR. SANDOVAL PRIMARY. DR. SANDOVAL WILL CALL BACK IF THERE IS ANY QUESTIONS.
--- NOTE | 2019-01-03 14:25 | NUR ---
PT. TRANSFERRED TO 229 REPORT GIVEN TO KENJI ELIZABETH RN. PT IS V/S STABLE NO COMPLAINTS OF PAIN, DRESSING IS DRY AND INTACT.
--- NOTE | 2019-01-03 14:30 | NUR ---
STATUS PT RECEIVED FROM DAYPT S/P LV LEAD REVISION. PRESSURE DSG TO LT UPPER CHEST, DRY & INTACT. NO BLEEDING, NO HEMATOMA NOTED. SLING TO LT ARM. PPM ARM PRECAUTIONS REINFORCED. STATES UNDERSTANDING. DENIES INCISIONAL PAIN. REINFORCED BEDREST X 4 HRS. PT A/O X 3. NO SOB. NO DISTRESS NOTED. DENIES CHEST PAIN OR DISCOMFORT. TELE: PACED 70s. DENIES N/V AND/OR DIARRHEA. SPOUSE @ BEDSIDE. BOTH ORIENTED TO RM. INSTRUCTED TO CALL FOR ASSISTANCE. CALL LESTER W/IN REACH.
[2019-01-03] MEDS: CARVEDILOL 25 MG TABLET PO SCH (20:05)
[2019-01-03] MEDS ORDERED: LOSARTAN 100 MG TABLET PO SCH (21:00)
[2019-01-04 03:50] LABS: CREATININE 1.5 mg/dL (0.5-1.5); POTASSIUM 3.6 mmol/L (3.5-5.1)
[2019-01-04 04:05] VITALS: BP 136/65
--- NOTE | 2019-01-04 07:23 | NUR ---
MD VISIT DR Samir COKER IN TO SEE PT. DAUGHTER @ BEDSIDE. PLAN OF CARE REVIEWED W/PT & FAMILY. QUESTIONS CLARIFIED BY MD.
--- NOTE | 2019-01-04 07:30 | NUR ---
AM ASSESSMENT PT LAYING IN BED, HOB ELEVATED 30 DEGREES, RESTING. DAUGHTER @ BEDSIDE. A/O X 3. NO SOB. NO DISTRESS NOTED. DENIES CHEST PAIN OR DISCOMFORT. DENIES PALPITATIONS. DENIES INCISIONAL PAIN. TELE: PACED 70s. LT UPPER CHEST DSG DRY & INTACT. NO BLEEDING, NO HEMATOMA NOTED. PPM ARM PRECAUTIONS REINFORCED. SLING TO LT ARM. DENIES N/V AND/OR DIARRHEA. UP W/ASSISTANCE. INSTRUCTED TO CALL FOR ASSISTANCE. CALL LESTER W/IN REACH.
[2019-01-04] MEDS: CARVEDILOL 25 MG TABLET PO SCH (08:05)
[2019-01-04 08:15] VITALS: BP 121/61
[2019-01-04] MEDS ORDERED: FUROSEMIDE 40 MG TABLET PO SCH (09:00)
--- NOTE | 2019-01-04 10:05 | NUR ---
DISCHARGE VERBAL & WRITTEN DISCHARGE INSTRUCTIONS REVIEWED & GIVEN TO PT & SPOUSE. QUESTIONS ENCOURAGED & CLARIFIED. PROPER CARE & ACTIVITY AFTER LV LEAD REVISION REVIEWED. ARM PRECAUTIONS REINFORCED. NEW PRESCRIBED MEDICATIONS REVIEWED. PRESCRIPTION GIVEN TO PT; SIGNED COPY PLACED IN CHART. F/U APPT INFO REVIEWED. TELE JULIETTE REMOVED. IV DISCONTINUED. PT 7 SPOUSE TO GTHER PERSONAL BELONGINGS. WILL NOTIFY STAFF WHEN READY TO BE TAKEN TO PRIVATE VEHICLE.
--- NOTE | 2019-01-04 10:35 | NUR ---
DISCHARGE PT TAKEN TO PRIVATE VEHICLE BY A VIPUL PCP, ACCOMPANIED BY SPOUSE. NO DISTRESS NOTED.
[2019-01-10] MEDS ORDERED: [UNRECOGNIZED DRUG - OTHER] SQ SCH (09:00)
[2019-01-10] MEDS ORDERED: INSULIN GLARGINE HUM REC ANLOG 12 UNIT SQ SCH (09:00)
== END 2019-01-04 10:35 | disposition home or self-care (01) ==
LOC: DAH 05:55 → DAHIP 05:56 → DAH 05:56 → 2AH 14:41
PROVIDERS: ADMIT Internal Medicine; ATTEND Internal Medicine
DX: T82.190A Other mechanical complication of cardiac electrode, initial encounter (principal); I50.42 Chronic combined systolic (congestive) and diastolic (congestive) heart failure; I25.10 Atherosclerotic heart disease of native coronary artery without angina pectoris; Z95.810 Presence of automatic (implantable) cardiac defibrillator; Z79.01 Long term (current) use of anticoagulants; Z79.899 Other long term (current) drug therapy; Z88.0 Allergy status to penicillin; I35.0 Nonrheumatic aortic (valve) stenosis; I82.439 Acute embolism and thrombosis of unspecified popliteal vein; N18.9 Chronic kidney disease, unspecified; Z95.2 Presence of prosthetic heart valve; Y84.0 Cardiac catheterization as the cause of abnormal reaction of the patient, or of later complication, without mention of misadventure at the time of the procedure
CPT/HCPCS: 33224; 33234; 36415 ×3; 71045; 80048 ×3; 82948 ×4; 85025; 85610; 85730; 93005; A4215; A4216; A4221; A4222; A4223 ×2; A4606; C1769 ×7; C1900; G0378 ×23; J2175 ×3; J2250 ×3; J3370 ×2; J3490 ×3; J7030; Q9967; 99156; 99157; J0690

== ENCOUNTER → 2019-06-23 | Outpatient (CLI) | payer OTHER ==
[~2019-06-23] MED LIST changes: +ACET1TAB12 PO; +INSU3INS3 SQ; -INSULIN SQ
--- NOTE | 2019-06-23 11:22 | NUR ---
MBSS COMPLETED. -S/S OF ASPIRATION. RECOMMEND REGULAR SOLIDS, THIN LIQUIDS, AND PILLS WHOLE WITH LIQUIDS. DAMPER FITTER PROVIDED RESULTS AND RECOMMENDATIONS. Pt VERBALIZED UNDERSTANDING AND ALL QUESTIONS WERE ANSWERED AT THIS TIME. Addendum: 06/23/[address] NUBIA ROBLES Amended: Links added.
== END | disposition home or self-care (01) ==
LOC: RAH 09:43
PROVIDERS: ATTEND Internal Medicine
DX: R13.10 Dysphagia, unspecified (principal); J39.2 Other diseases of pharynx
CPT/HCPCS: 74230; 92611

== ENCOUNTER → 2019-11-03 | Outpatient (CLI) | payer OTHER | END | disposition home or self-care (01) | LOC: SHCH 08:19 | PROVIDERS: ATTEND Internal Medicine Cardiovascular Disease | DX: I10 Essential (primary) hypertension (principal); I73.9 Peripheral vascular disease, unspecified; R09.89 Other specified symptoms and signs involving the circulatory and respiratory systems | CPT/HCPCS: 93306; 93356; 93880; 93925 ==

== ENCOUNTER → 2020-05-31 | Outpatient (CLI) | payer OTHER | END | disposition home or self-care (01) | LOC: SHCH 12:59 | PROVIDERS: ATTEND Internal Medicine Cardiovascular Disease | DX: I73.9 Peripheral vascular disease, unspecified (principal) | CPT/HCPCS: 93925 ==

== ENCOUNTER 2020-09-10 19:32 | Emergency (ER) | payer OTHER ==
[~2020-09-10] VITALS: Ht 172.7 cm; Wt 77.1 kg
[2020-09-10] VITALS (10 sets, daily range): BP systolic 148–184; BP diastolic 102–113
[2020-09-10] MEDS ORDERED: CLONIDINE HCL 0.1 MG TABLET ONE (21:08)
[2020-09-10] MEDS ORDERED: CLONIDINE HCL 0.1 MG TABLET PO ONE (21:15)
[2020-09-10] MEDS ORDERED: HYDROCODONE/ACETAMINOPHEN 5/325 MG TAB PO ONE (22:00)
[2020-09-10] MEDS ORDERED: ACET1TAB25 PO (22:02)
== END 2020-09-10 23:43 | disposition home or self-care (01) ==
LOC: EDH 19:32
DX: S16.1XXA Strain of muscle, fascia and tendon at neck level, initial encounter (principal); S00.93XA Contusion of unspecified part of head, initial encounter; I10 Essential (primary) hypertension; E78.00 Pure hypercholesterolemia, unspecified; Z95.2 Presence of prosthetic heart valve; Z88.0 Allergy status to penicillin; Z95.810 Presence of automatic (implantable) cardiac defibrillator; Z79.899 Other long term (current) drug therapy; Z79.01 Long term (current) use of anticoagulants; Z88.8 Allergy status to other drugs, medicaments and biological substances; V49.49XA Driver injured in collision with other motor vehicles in traffic accident, initial encounter; Y93.89 Activity, other specified; Y92.89 Other specified places as the place of occurrence of the external cause; Y99.8 Other external cause status
CPT/HCPCS: 70450; 72125

== ENCOUNTER → 2021-03-26 | Outpatient (CLI) | payer OTHER ==
[~2021-03-26] MED LIST changes: +ACET1TAB25 PO
== END | disposition home or self-care (01) ==
LOC: SHCH 07:34
PROVIDERS: ATTEND Internal Medicine Cardiovascular Disease
DX: I11.9 Hypertensive heart disease without heart failure (principal); I08.1 Rheumatic disorders of both mitral and tricuspid valves; I27.20 Pulmonary hypertension, unspecified; E11.9 Type 2 diabetes mellitus without complications; E78.5 Hyperlipidemia, unspecified; Z95.0 Presence of cardiac pacemaker; Z95.1 Presence of aortocoronary bypass graft; Z95.2 Presence of prosthetic heart valve
CPT/HCPCS: 93306; 93356

== ENCOUNTER → 2021-03-29 | Outpatient (CLI) | payer OTHER ==
[~2021-03-29] MED LIST changes: +REGADENOSON 0.4 MG/5 ML PF SYG IVP SCH
== END | disposition home or self-care (01) ==
LOC: SHCH 07:33
PROVIDERS: ATTEND Internal Medicine Cardiovascular Disease
DX: I10 Essential (primary) hypertension (principal); E78.5 Hyperlipidemia, unspecified; E11.9 Type 2 diabetes mellitus without complications; Z95.2 Presence of prosthetic heart valve; Z95.0 Presence of cardiac pacemaker; Z95.1 Presence of aortocoronary bypass graft
CPT/HCPCS: 78452; 93017; 96374; A9500 ×2; J2785

== ENCOUNTER 2021-10-16 20:30 | Emergency (ER) | payer OTHER ==
[~2021-10-16] VITALS: Ht 172.7 cm; Wt 82.1 kg
[~2021-10-16 20:30] MED LIST changes: +ACET-2079 PO; -ACET1TAB25 PO; -REGADENOSON 0.4 MG/5 ML PF SYG IVP SCH
[2021-10-16] MEDS ORDERED: ACETAMINOPHEN 500 MG TABLET PO ONE (21:30)
[2021-10-16] MEDS ORDERED: GUAIFENESIN SUGAR-FREE 100 MG/5 ML UDCUP PO SCH (21:30)
[2021-10-16] MEDS ORDERED: GUAIF10 PO (21:38)
[2021-10-16] MEDS ORDERED: ONDA4TAB10 PO (21:38)
[2021-10-16] MEDS ORDERED: ACET-66 PO (21:38)
[2021-10-16] MEDS ORDERED: AZIT500T2 PO (21:38)
[2021-10-16 21:39] VITALS: BP 157/85
== END 2021-10-16 21:55 | disposition home or self-care (01) ==
LOC: EDH 20:30
DX: U07.1 COVID-19 (principal); I11.0 Hypertensive heart disease with heart failure; I50.9 Heart failure, unspecified; E11.9 Type 2 diabetes mellitus without complications; E78.00 Pure hypercholesterolemia, unspecified; Z88.0 Allergy status to penicillin; Z95.1 Presence of aortocoronary bypass graft; Z95.2 Presence of prosthetic heart valve; Z79.899 Other long term (current) drug therapy; Z79.01 Long term (current) use of anticoagulants
CPT/HCPCS: 87635; 87804; 87880; 93005; C9803

== ENCOUNTER 2021-12-17 05:57 | Day surgery (SDC) | payer OTHER ==
[2021-12-13 14:49] LABS: BASOPHILS % (AUTO) 0.7 % (0.0-5.0); EOSINOPHILS % (AUTO) 1.1 % (0.0-8.0); HEMATOCRIT 37.6 % (42-54); LYMPHOCYTES % (AUTO) 20.4 % (21.0-51.0); MEAN CORPUSCULAR HEMOGLOBIN 29.1 pg (27.0-33.0); MEAN CORPUSCULAR HGB CONC 32.4 g/dL (32.0-36.0); MEAN CORPUSCULAR VOLUME 89.7 fL (79-99); MONOCYTES % (AUTO) 6.4 % (3.0-13.0); PLATELET COUNT (AUTO) 177 K/uL (130-400); RED BLOOD CELL COUNT(AUTO) 4.19 MIL/uL (4.50-6.20); RED CELL DISTRIBUTION WIDTH 14.7 % (11.0-15.5); WHITE BLOOD COUNT (AUTO) 7.4 K/uL (4.8-10.8)
[2021-12-13 14:57] LABS: CREATININE 1.3 mg/dL (0.5-1.5)
[2021-12-13 14:59] LABS: PROTHROMBIN TIME 10.9 SEC (9.6-11.6)
[2021-12-13 15:01] LABS: PARTIAL THROMBOPLASTIN TIME 30.3 SEC (26.3-35.5)
[2021-12-16 13:49] VITALS: BP 150/95
[~2021-12-17] VITALS: Ht 172.7 cm; Wt 81.5 kg
[2021-12-17] VITALS (23 sets, daily range): BP systolic 128–207; BP diastolic 70–111
[~2021-12-17 05:57] MED LIST changes: -ACET-2079 PO; -ACET1TAB12 PO; -CARV25TA PO; +CLON0.1T PO; +DONE5TAB33 PO; -FUROSEMIDE PO; -INSU3INS3 SQ; +LORA10TA7 PO; -MELA1TAB17 PO; +METO-391 PO; -OLME40TA18 PO
[2021-12-17] MEDS ORDERED: 0.9%NACL 1000ML 1,000 ML IV ONE (06:17)
[2021-12-17] MEDS ORDERED: LIDOCAINE HCL 2% VISCOUS 15 ML UDCUP ONE (07:15)
[2021-12-17] MEDS ORDERED: FLUMAZENIL 0.1MG/1ML 5ML VIAL IV ONE (07:16)
[2021-12-17] MEDS ORDERED: NALOXONE HCL 0.4 MG/1 ML ML ONE (07:17)
[2021-12-17] MEDS ORDERED: FENTANYL CITRATE PF 50 MCG/1 ML 2ML VIAL ONE (07:19)
[2021-12-17] MEDS ORDERED: MIDAZOLAM HCL 1 MG/ML 2ML VIAL ONE (07:19)
[2021-12-17] MEDS ORDERED: LABETALOL 20MG SYG IV ONE (07:34)
== END 2021-12-17 09:45 | disposition home or self-care (01) ==
LOC: DAH 05:57
PROVIDERS: ATTEND Internal Medicine Cardiovascular Disease
DX: I34.0 Nonrheumatic mitral (valve) insufficiency (principal); I48.0 Paroxysmal atrial fibrillation; Q21.1 Atrial septal defect; I10 Essential (primary) hypertension; E78.5 Hyperlipidemia, unspecified; Z79.01 Long term (current) use of anticoagulants; Z79.899 Other long term (current) drug therapy; Z98.890 Other specified postprocedural states; Z88.0 Allergy status to penicillin; Z95.1 Presence of aortocoronary bypass graft
CPT/HCPCS: 80048; 85025; 85610; 85730; 36415; 93005; 82948 ×2; 93325; 93312; A4223 ×2; J3010; J7030 ×2; J2250; A4615; A4215; A4657; A7002; A4221; A4216; 99152; J2310; J3490

== ENCOUNTER → 2022-01-13 | Outpatient (CLI) | payer OTHER ==
[2022-01-13 12:51] LABS: CREATININE 1.4 mg/dL (0.5-1.5); POTASSIUM 3.7 mmol/L (3.5-5.1)
== END | disposition home or self-care (01) ==
LOC: LAB 09:10
PROVIDERS: ATTEND Internal Medicine Cardiovascular Disease
DX: I10 Essential (primary) hypertension (principal)
CPT/HCPCS: 36415; 80048

== ENCOUNTER → 2022-01-13 | Outpatient (CLI) | payer OTHER ==
[2022-01-13 11:09] LABS: CREATININE 1.5 mg/dL (0.5-1.5); POTASSIUM 4.2 mmol/L (3.5-5.1)
== END | disposition home or self-care (01) ==
LOC: LAB 10:19
PROVIDERS: ATTEND Internal Medicine Cardiovascular Disease
DX: R10.12 Left upper quadrant pain (principal)
CPT/HCPCS: 36415; 80048

== ENCOUNTER → 2022-01-14 | Outpatient (CLI) | payer OTHER ==
[~2022-01-14] MED LIST changes: +IOHEXOL 350 MG/ML 100ML INFUS..BTL IV ONE
== END | disposition home or self-care (01) ==
LOC: RAH 10:23
PROVIDERS: ATTEND Internal Medicine Cardiovascular Disease
DX: J90 Pleural effusion, not elsewhere classified (principal); R10.12 Left upper quadrant pain
CPT/HCPCS: 74170; Q9967

== ENCOUNTER → 2022-06-05 | Outpatient (CLI) | payer OTHER ==
[~2022-06-05] MED LIST changes: -IOHEXOL 350 MG/ML 100ML INFUS..BTL IV ONE
== END | disposition home or self-care (01) ==
LOC: SHCH 09:49
PROVIDERS: ATTEND Internal Medicine Cardiovascular Disease
DX: I05.0 Rheumatic mitral stenosis (principal); I25.10 Atherosclerotic heart disease of native coronary artery without angina pectoris; I27.20 Pulmonary hypertension, unspecified; I11.9 Hypertensive heart disease without heart failure; Z95.2 Presence of prosthetic heart valve
CPT/HCPCS: 93306

== ENCOUNTER → 2022-07-11 | Outpatient (CLI) | payer OTHER ==
[~2022-07-11] MED LIST changes: +REGADENOSON 0.4 MG/5 ML PF SYG IVP ONE
== END | disposition home or self-care (01) ==
LOC: SHCH 09:42
PROVIDERS: ATTEND Internal Medicine Cardiovascular Disease
DX: I25.10 Atherosclerotic heart disease of native coronary artery without angina pectoris (principal); I12.9 Hypertensive chronic kidney disease with stage 1 through stage 4 chronic kidney disease, or unspecified chronic kidney disease; E11.22 Type 2 diabetes mellitus with diabetic chronic kidney disease; N18.4 Chronic kidney disease, stage 4 (severe); E78.5 Hyperlipidemia, unspecified; Z95.1 Presence of aortocoronary bypass graft; Z95.3 Presence of xenogenic heart valve; Z95.810 Presence of automatic (implantable) cardiac defibrillator; Z79.01 Long term (current) use of anticoagulants; Z79.899 Other long term (current) drug therapy
CPT/HCPCS: 78452; 93017; J2785; A9500 ×2; 96374

== ENCOUNTER → 2023-07-31 | Outpatient (CLI) | payer OTHER ==
[~2023-07-31] MED LIST changes: -REGADENOSON 0.4 MG/5 ML PF SYG IVP ONE
== END | disposition home or self-care (01) ==
LOC: SHCH 10:21
PROVIDERS: ATTEND Internal Medicine Cardiovascular Disease
DX: I08.1 Rheumatic disorders of both mitral and tricuspid valves (principal)
CPT/HCPCS: 93306

== ENCOUNTER → 2023-10-17 | Outpatient (CLI) | payer OTHER | END | disposition home or self-care (01) | LOC: SHCH 09:50 | PROVIDERS: ATTEND Internal Medicine Cardiovascular Disease | DX: I70.0 Atherosclerosis of aorta (principal); R10.0 Acute abdomen; Z79.899 Other long term (current) drug therapy; M19.90 Unspecified osteoarthritis, unspecified site; M54.50 Low back pain, unspecified; R42 Dizziness and giddiness | CPT/HCPCS: 93978 ==

== ENCOUNTER 2024-01-20 07:56 | Day surgery (SDC) | payer OTHER ==
[2024-01-15 11:58] LABS: BASOPHILS # (AUTO) 0.03 K/uL (0.00-0.20); BASOPHILS % (AUTO) 0.3 % (0.0-5.0); EOSINOPHILS # (AUTO) 0.09 K/uL (0.00-0.70); HEMATOCRIT 42.2 % (42-54); IMMATURE GRANULOCYTE ABSOLUTE 0.03 K/uL (0-1); LYMPHOCYTES # (AUTO) 1.6 K/uL (1.0-4.8); MEAN CORPUSCULAR HEMOGLOBIN 29.1 pg (27.0-33.0); MEAN CORPUSCULAR HGB CONC 32.5 g/dL (32.0-36.0); MEAN CORPUSCULAR VOLUME 89.8 fL (79-99); MONOCYTES # (AUTO) 0.6 K/uL (0.1-1.0); MONOCYTES % (AUTO) 6.6 % (3.0-13.0); NEUTROPHILS # (AUTO) 6.4 K/uL (1.8-7.7); NEUTROPHILS % (AUTO) 73.8 % (40.0-77.0); PLATELET COUNT (AUTO) 145 K/uL (130-400); RED CELL DISTRIBUTION WIDTH 13.8 % (11.0-15.5); WHITE BLOOD COUNT (AUTO) 8.7 K/uL (4.8-10.8)
[2024-01-15 12:00] VITALS: BP 150/82; PULSE 71; RESP 18; TEMP 98
[2024-01-15 12:13] LABS: INR 1.26 (0.85-1.15); PROTHROMBIN TIME 13.4 SEC (9.6-11.6)
[2024-01-15 12:14] LABS: PARTIAL THROMBOPLASTIN TIME 31.3 SEC (26.3-35.5)
[2024-01-15 13:03] LABS: CREATININE 1.7 mg/dL (0.5-1.3); POTASSIUM 4.1 mmol/L (3.5-5.1)
[2024-01-20] VITALS (8 sets, daily range): BP systolic 137–170; BP diastolic 78–93; PULSE 70; RESP 10–16; TEMP 97–97.6
[~2024-01-20] VITALS: Ht 175.3 cm; Wt 77.4 kg
[2024-01-20] MEDS ORDERED: LIDOCAINE HCL 1% MDV 50ML VIAL ONE (08:22)
[2024-01-20] MEDS ORDERED: ceFAZolin SODIUM 1 GM VIAL ONE (08:22)
[2024-01-20] MEDS ORDERED: BUPIvacaine/PF 0.25% 30ML VIAL IJ ONE (08:23)
[2024-01-20] MEDS: 0.9%NACL 1000ML 1,000 ML IV ONE (08:30)
[2024-01-20] MEDS ORDERED: VANCOMYCIN 1G/250ML KIT 500 ML IV ONE (08:34)
[2024-01-20] MEDS ORDERED: ATOR40TA71 PO (08:40)
[2024-01-20] MEDS ORDERED: INSU3INS3 SQ (08:40)
[2024-01-20] MEDS ORDERED: ACET-2521 PO (08:40)
[2024-01-20] MEDS ORDERED: FLUT16H NS (08:40)
[2024-01-20] MEDS ORDERED: DOCU100T PO (08:40)
[2024-01-20] MEDS ORDERED: MEPERIDINE-PF 25 MG/ML SYG ONE ×2 (08:49→09:02)
[2024-01-20] MEDS ORDERED: MIDAZOLAM HCL 1 MG/ML 2ML VIAL ONE ×2 (08:49→09:02)
[2024-01-20] MEDS ORDERED: BACITRACIN 1 EACH PACKET TP ONE (09:44)
[2024-01-20] MEDS ORDERED: acetaMINOPHEN 500 MG TABLET PO PRN (10:00)
[2024-01-20] MEDS ORDERED: acetaMINOPHEN WITH coDEINE 1 TAB TAB PO PRN (10:00)
[2024-01-20] MEDS ORDERED: TRAM50TA4 PO (10:03)
== END 2024-01-20 12:10 | disposition home or self-care (01) ==
LOC: DAH 07:56
PROVIDERS: ATTEND Internal Medicine Cardiovascular Disease
DX: Z45.02 Encounter for adjustment and management of automatic implantable cardiac defibrillator (principal); I25.5 Ischemic cardiomyopathy; I48.21 Permanent atrial fibrillation; I13.0 Hypertensive heart and chronic kidney disease with heart failure and stage 1 through stage 4 chronic kidney disease, or unspecified chronic kidney disease; E11.22 Type 2 diabetes mellitus with diabetic chronic kidney disease; I50.9 Heart failure, unspecified; N18.4 Chronic kidney disease, stage 4 (severe); E78.5 Hyperlipidemia, unspecified; Z88.0 Allergy status to penicillin; Z79.4 Long term (current) use of insulin; Z79.01 Long term (current) use of anticoagulants; Z79.899 Other long term (current) drug therapy
CPT/HCPCS: 80048; 85025; 85610; 85730; 36415; 93005; 33264; 82948 ×2; C1882; J7030; J0665; J2250 ×2; J3370; J2175 ×2; J3490; A4215; A4222; A4221; A4663; A4216; A4606; A4223 ×3; 99156; 99157; J0690

== ENCOUNTER → 2024-04-06 | Outpatient (CLI) | payer OTHER ==
[2024-04-06 16:14] LABS: BASOPHILS # (AUTO) 0.04 K/uL (0.00-0.20); BASOPHILS % (AUTO) 0.6 % (0.0-5.0); EOSINOPHILS # (AUTO) 0.14 K/uL (0.00-0.70); EOSINOPHILS % (AUTO) 1.9 % (0.0-8.0); HEMATOCRIT 39.8 % (42-54); IMMATURE GRANULOCYTE ABSOLUTE 0.02 K/uL (0-1); LYMPHOCYTES # (AUTO) 1.6 K/uL (1.0-4.8); LYMPHOCYTES % (AUTO) 22.2 % (21.0-51.0); MEAN CORPUSCULAR HEMOGLOBIN 28.2 pg (27.0-33.0); MEAN CORPUSCULAR HGB CONC 31.2 g/dL (32.0-36.0); MEAN CORPUSCULAR VOLUME 90.5 fL (79-99); MONOCYTES # (AUTO) 0.5 K/uL (0.1-1.0); MONOCYTES % (AUTO) 6.6 % (3.0-13.0); NEUTROPHILS % (AUTO) 68.4 % (40.0-77.0); PLATELET COUNT (AUTO) 174 K/uL (130-400); RED CELL DISTRIBUTION WIDTH 14.8 % (11.0-15.5); WHITE BLOOD COUNT (AUTO) 7.3 K/uL (4.8-10.8)
== END | disposition home or self-care (01) ==
LOC: LAB 13:10
PROVIDERS: ATTEND Physician Assistant
DX: I50.32 Chronic diastolic (congestive) heart failure (principal); R78.81 Bacteremia
CPT/HCPCS: 36415; 85025; 87040